=== PATIENT | male | born 1990 | race Caucasian/White ===

== ENCOUNTER 2020-08-12 16:48 | Emergency (ER) | payer OTHER ==
[2020-08-12 16:52] VITALS: BP 140/88; PULSE 110; RESP 20; TEMP 97.9
[2020-08-12] MEDS ORDERED: CLINDAMYCIN 150 MG CAP PO STA (17:00)
[2020-08-12] MEDS ORDERED: ACET/COD 300 MG/30 MG STARTER PACK 6 TAB BTL PO STA (17:01)
--- NOTE | 2020-08-12 17:02 | ED ---
ENT HPI - General Chief complaint: Dental/Oral Stated complaint: Tooth infection Time Seen by Provider: 08/12/20 16:53 Source: patient Mode of arrival: ambulatory Limitations: no limitations - History of Present Illness Initial comments: 29-year-old male history of dental caries presenting for right posterior tooth pain. Patient states the past week he has had dental pain. He states today he woke up with some mild right-sided facial swelling he does a swelling below the tongue swelling of the neck difficulty swallowing breathing or tolerating oral secretions he denies fevers chills general malaise. Patient states he felt immediate antibiotic presents to the ER as his primary care provider and digits are closed he denies additional complaints or concerns and upon arrival he appears well nontoxic noted acute distress. - Related Data Previous Rx's Medication Instructions Recorded Cyclobenzaprine [Flexeril] 10 mg PO TID #20 tab 12/04/15 Ibuprofen [Motrin] 800 mg PO Q6HR PRN #30 tab 12/04/15 Clindamycin [Cleocin] 450 mg PO Q8H 7 Days #63 capsule 08/12/20 Allergies Allergy/AdvReac Type Severity Reaction Status Date / Time Penicillins Allergy Unknown Verified 08/12/20 16:52 Childhood Review of Systems ROS Statement: Those systems with pertinent positive or pertinent negative responses have been documented in the HPI. ROS Other: All systems not noted in ROS Statement are negative. Past Medical History Past Medical History: No Reported History History of Any Multi-Drug Resistant Organisms: None Reported Past Surgical History: No Surgical Hx Reported Past Psychological History: No Psychological Hx Reported Past Alcohol Use History: Rare Past Drug Use History: None Reported General Exam - General Exam Comments Initial Comments: General: The patient is awake and alert, in no distress, and does not appear acutely ill. Eye: Pupils are equal, round and reactive to light, extra-ocular movements are intact. No nystagmus. There is normal conjunctiva bilaterally. No signs of icterus. Ears, nose, mouth and throat: There are moist mucous membranes and no oral lesions. patient percussion of tooth [id number]. No obvious gingival abscess. Cannot rule out periapical. Patient has numerous fillings. No swelling below tongue full angle of the mandible of the neck he has no tripoding drooling stridor he is tolerating oral secretions without difficulty Neck: The neck is supple, there is no tenderness or JVD. Musculoskeletal: Normal ROM, no tenderness. Strength 5/5. Sensation intact. Pulses equal bilaterally 2+. Neurological: A&O x 3. CN II-XII intact grossly, There are no obvious motor or sensory deficits. Coordination appears grossly intact. Speech is normal. Skin: Skin is warm and dry and no rashes or lesions are noted. Psychiatric: Cooperative, appropriate mood & affect, normal judgment. Limitations: no limitations Course Vital Signs 08/12/20 16:50 Temperature 97.9 F Pulse Rate 110 H Respiratory 20 Rate Blood Pressure 140/88 O2 Sat by Pulse 99 Oximetry Medical Decision Making - Medical Decision Making Dental pain to percussion, very mild swelling right side of face. no drainage abscess identified. pt will be placed on clindamycin given his PCN allergy. pt initiated in the ER. Pt given tylenol #3 for pain control. patient is aware of the importance of follow-up patient with dentist for possible extraction or further intervention. Return parameters were discussed the patient was discharged appearing well Disposition Clinical Impression: Pain, dental, Dental infection Disposition: HOME SELF-CARE Condition: Good Instructions (If sedation given, give patient instructions): Dental Abscess (ED) Additional Instructions: Please use medication as discussed. Please follow-up with family doctor in the next 2 days, recommend DENTIST follow-up TOMORROW or [facility] this upcoming week. Please return to emergency room if the symptoms increase or worsen or for any other concerns--swelling below the tongue increasing swelling of the face fevers chills, swelling of neck, difficulty swallowing. Prescriptions: Clindamycin [Cleocin] 450 mg PO Q8H 7 Days #63 capsule Is patient prescribed a controlled substance at d/c from ED?: No Referrals: Amrita Mejia MD [Primary Care Provider] - 1-2 days Time of Disposition: 17:02
== END 2020-08-12 17:27 | disposition home or self-care (01) ==
LOC: EC 16:48
DX: K04.7 Periapical abscess without sinus (principal); Z88.0 Allergy status to penicillin
CPT/HCPCS: 99282

== ENCOUNTER 2021-03-04 07:10 | Emergency (ER) | payer OTHER ==
[2021-03-04 07:17] VITALS: BP 134/93; PULSE 77; TEMP 98
[2021-03-04] MEDS ORDERED: KETOROLAC 15 MG/ML 1 ML VIAL IM STA (07:44)
--- NOTE | 2021-03-04 07:47 | ED ---
General Adult HPI - General Chief complaint: Back Pain/Injury Stated complaint: Back Injury Time Seen by Provider: 03/04/21 07:21 Source: patient Mode of arrival: ambulatory Limitations: no limitations - History of Present Illness Initial comments: Dictation was produced using [employer] dictation software. please excuse any grammatical, word or spelling errors. Chief Complaint: 30-year-old male with past medical history of scoliosis presents with back pain after fall History of Present Illness: 30-year-old male he was getting ready go to work. 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 Prior to arriving at work he slipped and fell on the grass landing on his left side. Patient states that he had immediate pain to the left soft tissues of the left lower back. Patient's history is when he reports as severe scoliosis. Patient was ambulatory after the fall. Denies any radiation of symptoms. States that the pain is moderate. He did arrive at work however because of his symptoms he decided to leave work, to be evaluated. Patient denies any medical history except for scoliosis. Denies any numbness and paresthesias to the saddle area. No difficulty urinating. States that position of comfort is standing in position of discomfort is lying left lateral decubitus position. The ROS documented in this emergency department record has been reviewed and confirmed by me. Those systems with pertinent positive or negative responses have been documented in the HPI. All other systems are other negative and/or noncontributory. PHYSICAL EXAM: General Impression: Alert and oriented x3, not in acute distress HEENT: Normocephalic atraumatic, extra-ocular movements intact, pupils equal and reactive to light bilaterally, mucous membranes moist. Cardiovascular: Heart regular rate and rhythm Chest: Able to complete full sentences, no retractions, no tachypnea Abdomen: abdomen soft, non-tender, non-distended, no organomegaly Musculoskeletal: Pulses present and equal in all extremities, no peripheral edema Back: Tenderness to palpation over the soft tissues of the left lateral lumbar level Motor: no focal deficits noted Neurological: CN II-XII grossly intact, no focal motor or sensory deficits noted Skin: Intact with no visualized rashes Psych: Normal affect and mood ED course: 30-year-old male presents with clinical presentation consistent with lower back strain versus lower back contusion. Vital signs upon arrival are within acceptable limits. Lumbar x-rays unremarkable for any acute processes. There does appear to be degenerative changes in the upper and lower lumbar spine. Patient will be discharged. Advised follow-up with primary care doctor. - Related Data Previous Rx's Medication Instructions Recorded Cyclobenzaprine [Flexeril] 10 mg PO TID #20 tab 12/04/15 Ibuprofen [Motrin] 800 mg PO Q6HR PRN #30 tab 12/04/15 Clindamycin [Cleocin] 450 mg PO Q8H 7 Days #63 capsule 08/12/20 Allergies Allergy/AdvReac Type Severity Reaction Status Date / Time Penicillins Allergy Unknown Verified 03/04/21 07:14 Childhood Review of Systems ROS Statement: Those systems with pertinent positive or pertinent negative responses have been documented in the HPI. ROS Other: All systems not noted in ROS Statement are negative. Past Medical History Past Medical History: No Reported History History of Any Multi-Drug Resistant Organisms: None Reported Past Surgical History: No Surgical Hx Reported Past Psychological History: No Psychological Hx Reported Smoking Status: Current every day smoker Past Alcohol Use History: None Reported Past Drug Use History: None Reported General Exam Limitations: no limitations Course Vital Signs 03/04/21 03/04/21 07:14 08:17 Temperature 98.0 F Pulse Rate 77 Respiratory 16 18 Rate Blood Pressure 134/93 O2 Sat by Pulse 99 Oximetry Disposition Clinical Impression: Back strain Disposition: HOME SELF-CARE Condition: Good Instructions (If sedation given, give patient instructions): Acute Low Back Pain (ED) Is patient prescribed a controlled substance at d/c from ED?: No Referrals: Amrita Mejia MD [Primary Care Provider] - 1-2 days
[2021-03-04 08:24] VITALS: RESP 18
[2021-03-04] MEDS ORDERED: IBUPROFEN 600 MG TAB PO STA (08:24)
--- NOTE | 2021-03-04 08:24 | XR ---
EXAMINATION TYPE: XR lumbar spine 2 or 3V DATE OF EXAM: 03/04/2021 Comparison: None Clinical History: 30-year-old male fall Findings: 5 lumbar type vertebral bodies. Facet arthropathy lower lumbar spine. Mild degenerative disc space na rrowing upper lumbar spine. Vertebral body heights are preserved and alignment is maintained. Straigh tening of the normal cervical lordosis. Impression: Some facet degenerative change in the lower lumbar spine. Mild degenerative disc disease upper lumbar spine. No vertebral compression collapse or malalignment.
[2021-03-04] MEDS ORDERED: ACET/COD 300 MG/30 MG STARTER PACK 6 TAB BTL PO STA (08:49)
== END 2021-03-04 08:56 | disposition home or self-care (01) ==
LOC: EC 07:10
DX: S39.012A Strain of muscle, fascia and tendon of lower back, initial encounter (principal); F17.200 Nicotine dependence, unspecified, uncomplicated; Z88.0 Allergy status to penicillin; W01.0XXA Fall on same level from slipping, tripping and stumbling without subsequent striking against object, initial encounter; Y92.009 Unspecified place in unspecified non-institutional (private) residence as the place of occurrence of the external cause
CPT/HCPCS: 72100; 99283

== ENCOUNTER → 2021-03-06 | Outpatient (CLI) | payer OTHER ==
--- NOTE | 2021-03-06 22:06 | XR ---
EXAMINATION TYPE: XR Hip Bilateral Complete DATE OF EXAM: 03/06/2021 COMPARISON: NONE HISTORY: Pain TECHNIQUE: 4 views FINDINGS: There is no sign of fracture nor dislocation. Hip joint spaces are normal. Sacroiliac joint s appear normal. There is no hip dysplasia. IMPRESSION: Normal bilateral hip exam.
--- NOTE | 2021-03-06 22:07 | XR ---
EXAMINATION TYPE: XR sacroiliac joint comp BILAT DATE OF EXAM: 03/06/2021 COMPARISON: NONE HISTORY: Fall. Pain. TECHNIQUE: 3 views FINDINGS: There is no evidence of fracture nor dislocation. Sacroiliac joint spaces are normal. There are no erosions. IMPRESSION: Normal bilateral sacroiliac joint exam.
--- NOTE | 2021-03-06 22:08 | XR ---
EXAMINATION TYPE: XR thoracic spine 2V DATE OF EXAM: 03/06/2021 COMPARISON: None HISTORY: Pain TECHNIQUE: 3 views FINDINGS: Thoracic vertebra have normal spacing and alignment. Posterior elements are intact. There i s no evidence of paraspinal mass. There is no compression fracture. IMPRESSION: Negative thoracic spine exam. No fracture seen.
== END | disposition home or self-care (01) ==
LOC: RADXRMAIN 18:54
PROVIDERS: ATTEND Family Medicine
DX: M54.5 Low back pain (principal); M25.551 Pain in right hip; M25.552 Pain in left hip
CPT/HCPCS: 72070; 72202; 73521

== ENCOUNTER 2021-04-30 03:54 | Emergency (ER) | payer OTHER ==
[2021-04-30 04:02] VITALS: TEMP 98.8
[2021-04-30] MEDS ORDERED: IBUPROFEN 800 MG TAB PO STA (04:04)
[2021-04-30] MEDS ORDERED: diphenhydrAMINE 50 MG CAP PO STA (04:04)
[2021-04-30] MEDS ORDERED: AZITHROMYCIN 500 MG TAB PO STA (04:04)
[2021-04-30] MEDS ORDERED: ACETAMINOPHEN TAB 500 MG TAB PO STA (04:04)
[2021-04-30] MEDS ORDERED: FLUTICASONE 50MCG/SPRAY NASAL 16GM EA NOSTRIL STA (04:04)
--- NOTE | 2021-04-30 04:10 | ED ---
ENT HPI - General Chief complaint: ENT Stated complaint: not feeling well Time Seen by Provider: 04/30/21 03:55 Source: EMS, RN notes reviewed, old records reviewed Mode of arrival: EMS Limitations: no limitations - History of Present Illness Initial comments: This is a 30-year-old male who states having difficulty breathing secondary to unable to take a deep breath and may have blood pressure severe sinus infection currently. Patient denying fevers or headache. No other known complaints no sore throat no chest pain or shortness of breath. Patient has history of sinus infections and this feels the same MD complaint: sore throat -: days(s) Location: nose Severity: moderate Severity scale (1-10): 4 Consistency: constant Improves with: none, pressure, cold therapy Worsens with: none Context- Ear: recent illness Associated Symptoms: sore throat, tinnitus, rhinorrhea - Related Data Home Medications Medication Instructions Recorded Confirmed Ibuprofen [Motrin Ib] 800 mg PO Q8H PRN 03/04/21 03/04/21 Previous Rx's Medication Instructions Recorded Azithromycin [Zithromax Z-pack (6 0 mg PO DIRECTED #1 packet 04/30/21 tabs)] Allergies Allergy/AdvReac Type Severity Reaction Status Date / Time Penicillins Allergy Unknown Verified 03/04/21 08:45 Childhood Review of Systems ROS Statement: Those systems with pertinent positive or pertinent negative responses have been documented in the HPI. ROS Other: All systems not noted in ROS Statement are negative. Past Medical History Past Medical History: No Reported History History of Any Multi-Drug Resistant Organisms: None Reported Past Surgical History: No Surgical Hx Reported Past Psychological History: No Psychological Hx Reported Smoking Status: Current every day smoker Past Alcohol Use History: Occasional Past Drug Use History: Cocaine, Marijuana General Exam General appearance: alert, in no apparent distress Head exam: Present: atraumatic, normocephalic, normal inspection Eye exam: Present: normal appearance, PERRL, EOMI. Absent: scleral icterus, conjunctival injection, periorbital swelling ENT exam: Present: normal exam, mucous membranes moist Neck exam: Present: normal inspection. Absent: tenderness, meningismus, lymphadenopathy Respiratory exam: Present: normal lung sounds bilaterally. Absent: respiratory distress, wheezes, rales, rhonchi, stridor Cardiovascular Exam: Present: regular rate, normal rhythm, normal heart sounds. Absent: systolic murmur, diastolic murmur, rubs, gallop, clicks GI/Abdominal exam: Present: soft, normal bowel sounds. Absent: distended, tenderness, guarding, rebound, rigid Extremities exam: Present: normal inspection, full ROM, normal capillary refill. Absent: tenderness, pedal edema, joint swelling, calf tenderness Back exam: Present: normal inspection Neurological exam: Present: alert, oriented X3, CN II-XII intact Psychiatric exam: Present: normal affect, normal mood Skin exam: Present: warm, dry, intact, normal color. Absent: rash Course Vital Signs 04/30/21 04/30/21 03:55 05:33 Temperature 98.8 F Pulse Rate 89 88 Respiratory 20 24 Rate Blood Pressure 155/97 145/84 O2 Sat by Pulse 94 L 96 Oximetry - Reevaluation(s) Reevaluation #1: Medical record is reviewed Patient symptoms are significantly improved Patient family informed results questions answered Medical Decision Making - Medical Decision Making 30 male to The ER for evaluation of upper respiratory infection sinusitis. Sinus headache. Symptoms improved here in the ER and can be discharged home Disposition Clinical Impression: Acute sinusitis Disposition: HOME SELF-CARE Condition: Good Instructions (If sedation given, give patient instructions): Sinusitis (ED), Rhinosinusitis (ED) Prescriptions: Azithromycin [Zithromax Z-pack (6 tabs)] 0 mg PO DIRECTED #1 packet Is patient prescribed a controlled substance at d/c from ED?: No Referrals: Amrita Mejia MD [Primary Care Provider] - 1-2 days
[2021-04-30] MEDS ORDERED: PSEUDOEPHEDRINE 30 MG TAB PO STA (04:17)
[2021-04-30 05:35] VITALS: BP 145/84; PULSE 88; RESP 24
[2021-04-30] MEDS ORDERED: PSEUDOEPHEDRINE 30 MG TAB PO SCH (06:00)
== END 2021-04-30 05:37 | disposition home or self-care (01) ==
LOC: EC 03:54
DX: J01.90 Acute sinusitis, unspecified (principal); F17.200 Nicotine dependence, unspecified, uncomplicated; Z88.0 Allergy status to penicillin
CPT/HCPCS: 99284

== ENCOUNTER 2024-10-19 08:04 | Inpatient (IN) | payer MEDICAID, OTHER ==
--- NOTE | 2024-10-19 08:40 | ED ---
General Adult HPI - General Chief complaint: Psychiatric Symptoms Stated complaint: Petition Time Seen by Provider: 10/19/24 08:18 Source: patient, police Mode of arrival: ambulatory Limitations: no limitations - History of Present Illness Initial comments: Dictation was produced using [employer] dictation software. please excuse any grammatical, word or spelling errors. Chief Complaint: 33-year-old male presents to the emergency department for psychiatric evaluation History of Present Illness: Patient 33-year-old male presents to the emergency department for psychiatric evaluation. Patient was brought in by police after stepdad had filed a report. Patient has been paranoid. Patient denies any symptoms. States that people are out to get him. Apparently he has been trying to obtain dangerous weapons. The ROS documented in this emergency department record has been reviewed and confirmed by me. Those systems with pertinent positive or negative responses have been documented in the HPI. All other systems are other negative and/or noncontributory. - Related Data Home Medications Medication Instructions Recorded Confirmed Ibuprofen [Motrin Ib] 800 mg PO Q8H PRN 03/04/21 10/19/24 ALPRAZolam [Xanax] 1 mg PO BID PRN 10/19/24 10/19/24 Atorvastatin [Lipitor] 40 mg PO DAILY 10/19/24 10/19/24 Buprenorphine HCl/Naloxone HCl 1 film SL TID 10/19/24 10/19/24 [Suboxone 8 mg-2 mg Sl Film] Losartan Potassium 100 mg PO DAILY 10/19/24 10/19/24 Omeprazole 40 mg PO DAILY 10/19/24 10/19/24 amLODIPine [Norvasc] 5 mg PO DAILY 10/19/24 10/19/24 hydrOXYzine HCL [Atarax] 50 mg PO BID PRN 10/19/24 10/19/24 Allergies Allergy/AdvReac Type Severity Reaction Status Date / Time Penicillins Allergy Unknown Verified 10/19/24 10:53 Childhood Review of Systems ROS Statement: Those systems with pertinent positive or pertinent negative responses have been documented in the HPI. ROS Other: All systems not noted in ROS Statement are negative. Past Medical History Past Medical History: No Reported History History of Any Multi-Drug Resistant Organisms: None Reported Past Surgical History: No Surgical Hx Reported Past Psychological History: No Psychological Hx Reported Smoking Status: Current every day smoker Past Alcohol Use History: Occasional Past Drug Use History: Cocaine, Marijuana, Methamphetamine General Exam - General Exam Comments Initial Comments: PHYSICAL EXAM: General Impression: Alert and oriented x3, not in acute distress HEENT: Normocephalic atraumatic, extra-ocular movements intact, pupils equal and reactive to light bilaterally, mucous membranes moist. Cardiovascular: Heart regular rate and rhythm Chest: Able to complete full sentences, no retractions, no tachypnea Abdomen: abdomen soft, non-tender, non-distended, no organomegaly Musculoskeletal: Pulses present and equal in all extremities, no peripheral edema Motor: no focal deficits noted Neurological: CN II-XII grossly intact, no focal motor or sensory deficits noted Skin: Intact with no visualized rashes Psych: Aggressive, tangential speech Limitations: no limitations Course Vital Signs 10/19/24 10/19/24 08:10 08:32 Temperature 98.4 F 97.8 F Pulse Rate 95 92 Respiratory 19 16 Rate Blood Pressure 118/75 122/86 O2 Sat by Pulse 97 99 Oximetry Medical Decision Making - Medical Decision Making Was pt. sent in by a medical professional or institution (, PA, RN TELEPHONIC, urgent care, hospital, or jail...) When possible be specific @ -No Did you speak to anyone other than the patient for history (EMS, parent, family, police, friend...)? What history was obtained from this source @ -No Did you review nursing and triage notes (agree or disagree)? Why? @ -I reviewed and agree with nursing and triage notes Were old charts reviewed (outside hosp., previous admission, EMS record, old EKG, old radiological studies, urgent care reports/EKG's, jail records)? Report findings @ -No old charts were reviewed Differential Diagnosis (chest pain, altered mental status, abdominal pain women, abdominal pain men, vaginal bleeding, musculoskeletal, weakness, fever, dyspnea, syncope, headache, dizziness, GI bleed, back pain, seizure, CVA, palpatations, mental health)? @ -Differential Mental Health: Depression, anxiety, bipolar, psychosis, schizophrenia, borderline personality, situational depression, adjustment disorder, behavioral disorder, brain tumor, malingering, substance abuse, encephalopathy, medication reaction, dementia, hypothyroidism, degenerative neurologic disorder, lupus.... This is not meant to be all-inclusive list EKG interpreted by me (3pts min.). @ -None done X-rays interpreted by me (1pt min.). @ -None done CT interpreted by me (1pt min.). @ -None done U/S interpreted by me (1pt. min.). @ -None done What testing was considered but not performed or refused? (CT, X-rays, U/S, labs)? Why? @ -None What meds were considered but not given or refused? Why? @ -None Was smoking cessation discussed for >3mins.? @ -No Were there social determinants of health that impacted care today? How? (Homelessness, low income, unemployed, alcoholism, drug addiction, transportation, low edu. Level, literacy, decrease access to med. care, correction, rehab)? @ -No Was there de-escalation of care discussed even if they declined (Discuss DNR or withdrawal of care, Hospice)? DNR status @ -No What co-morbidities impacted this encounter? (DM, HTN, Smoking, COPD, CAD, Cancer, CVA, ARF, Chemo, Hep., AIDS, mental health diagnosis, sleep apnea, morbid obesity)? @ -Illicit drug abuse Was patient admitted / discharged? Hospital course, mention meds given and route, prescriptions, significant lab abnormalities, going to OR and other pertinent info. @ -33-year-old male presents to the emergency department for acute psychosis. Vital signs stable. Patient medically cleared for EPS evaluation. EPS evaluated patient patient petition. Clinical certification completed will be admitted to inpatient psych Did you discuss the management of the patient with other professionals (professionals i.e. , PA, RN TELEPHONIC, lab, RT, psych nurse, clinical social worker, sizing sprayer, teacher, chief learning officer, case folder)? Give summary @ -See above Was critical care preformed (if so, how long)? @ -No Undiagnosed new problem with uncertain prognosis? @ -No Drug Therapy requiring intensive monitoring for toxicity (Heparin, Nitro, Insulin, Cardizem)? @ -No Were any procedures done? @ -No Diagnosis/symptom? Acute, or Chronic, or Acute on Chronic? Uncomplicated (without systemic symptoms) or Complicated (systemic symptoms)? @ -Acute psychosis Side effects of treatment? @ -No Exacerbation, Progression, or Severe Exacerbation? @ -No Poses a threat to life or bodily function? How? (Chest pain, [place], [place], pneumonia, PE, COPD, DKA, ARF, appy, cholecystitis, CVA, Diverticulitis, Homicidal, Suicidal, threat to staff... and all critical care pts) @ -yes - Lab Data Lab Results 10/19/24 10/19/24 Range/Units 09:02 11:00 Urine Opiates Screen Not Detected (NotDetected) Ur Oxycodone Screen Not Detected (NotDetected) Urine Methadone Screen Not Detected (NotDetected) Ur Barbiturates Screen Not Detected (NotDetected) U Tricyclic Antidepress Not Detected (NotDetected) Ur Phencyclidine Scrn Not Detected (NotDetected) Ur Amphetamines Screen Detected H (NotDetected) U Methamphetamines Scrn Detected H (NotDetected) U Benzodiazepines Scrn Detected H (NotDetected) Urine Cocaine Screen Not Detected (NotDetected) U Marijuana (THC) Screen Detected H (NotDetected) SARS-CoV-2 (PCR) Not Detected (Not Detectd) Disposition Clinical Impression: Psychosis Disposition: TRANSFER TO PSYCH HOSP/UNIT Condition: Fair Referrals: Carlos Koch MD [Primary Care Provider] - 1-2 days Time of Disposition: 12:48
[2024-10-19 11:27] LABS: Amphetamine Screen,Urine Detected (NotDetected); Barbiturate Screen,Urine Not Detected (NotDetected); Benzodiazepines Screen,Urine Detected (NotDetected); Cocaine Screen,Urine Not Detected (NotDetected); Methadone Screen, Urine Not Detected (NotDetected); Opiate Screen,Urine Not Detected (NotDetected); Oxycodone Screen, Urine Not Detected (NotDetected); Phencyclidine Screen,Urine Not Detected (NotDetected); Tricyclic Antidepressant,Urine Not Detected (NotDetected); Urn Cannabinoid Scrn Detected (NotDetected)
[2024-10-19] MEDS ORDERED: ACETAMINOPHEN TAB 325 MG TAB PO PRN (13:56)
[2024-10-19] MEDS ORDERED: MAGNESIUM HYDROXIDE 2,400 MG/30 ML CUP PO PRN (13:56)
[2024-10-19] MEDS ORDERED: MAG HYDROX/AL HYDROX/SIMETH 355 ML BOTTLE PO PRN (13:56)
[2024-10-19] MEDS ORDERED: HALOPERIDOL LACTATE 5 MG/ML 1 ML VIAL IM PRN (13:58)
[2024-10-19] MEDS ORDERED: LORazepam 2 MG/ML INJ IM PRN (13:58)
[2024-10-19] MEDS ORDERED: haloperidoL 5 MG TAB PO PRN (13:58)
[2024-10-19] MEDS ORDERED: BUPRENORPHINE-NALOX 8-2 MG TAB 1 EACH TAB.SUBL SL SCH (16:15)
[2024-10-19] MEDS: BUPRENORPHINE-NALOX 8-2 MG TAB 1 EACH TAB.SUBL SL SCH (16:18)
[2024-10-19] MEDS: NON FORMULARY DRUG (Buprenorphine Hcl/Naloxone Hcl [Suboxone 8 Mg-2 Mg Sl Film] 1 EACH Fil SUBLINGUAL SCH (16:21)
[2024-10-19] MEDS: LORazepam 1 MG TAB PO PRN (18:40)
[2024-10-19] MEDS: NICOTINE 14MG/24HR PATCH TRANSDERM SCH (21:21)
[2024-10-19 21:53] VITALS: RESP 16
[2024-10-20] MEDS: PANTOPRAZOLE 40 MG TABLET PO SCH (08:37)
[2024-10-20] MEDS: amLODIPine 5 MG TAB PO SCH (08:37)
[2024-10-20] MEDS: ATORVASTATIN 40 MG TAB PO SCH (08:37)
[2024-10-20] MEDS: LOSARTAN 50 MG TAB PO SCH (08:37)
[2024-10-20] MEDS ORDERED: NICOTINE 14MG/24HR PATCH TRANSDERM SCH (09:00)
[2024-10-20 11:51] LABS: Basophils # (A) 0.07 10*3/uL (0.00-0.10); Basophils % (A) 0.6 %; Eosinophils # (A) 0.51 10*3/uL (0.04-0.35); Eosinophils % (A) 4.1 %; HCT 43.3 % (39.6-50.0); HGB 14.3 g/dL (13.0-17.0); Lymphocytes # (A) 2.27 10*3/uL (0.90-5.00); Lymphocytes % (A) 18.2 %; MCH 31.2 pg (27.0-32.0); MCV 94.3 fL (80.0-97.0); Mean Platelet Volume 9.3 fL (9.5-12.2); Monocytes # (A) 0.78 10*3/uL (0.20-1.00); Monocytes % (A) 6.3 %; Neutrophils # (A) 8.79 10*3/uL (1.80-7.70); Neutrophils % (A) 70.4 %; Platelet Count 287 10*3/uL (140-440); RBC 4.59 10*6/uL (4.40-5.60); RDW 12.7 % (11.5-14.5); WBC 12.47 10*3/uL (4.50-10.00)
[2024-10-20 12:22] LABS: ALT 13 U/L (4-49); AST 21 U/L (17-59); African American GFR (CKD) >90 (>60 ml/min/1.73 sqM); Albumin 3.3 g/dL (3.5-5.0); Alkaline Phosphatase 41 U/L (38-126); Anion Gap 0 mmol/L; Blood Urea Nitrogen 14 mg/dL (9-20); Calcium 9.5 mg/dL (8.4-10.2); Carbon Dioxide 34 mmol/L (22-30); Chloride 102 mmol/L (98-107); Glucose 91 mg/dL (74-99); Non-African American GFR(CKD) >90 (>60 ml/min/1.73 sqM); Potassium 4.7 mmol/L (3.5-5.1); Sodium 136 mmol/L (137-145); Total Bilirubin 0.4 mg/dL (0.2-1.3); Total Protein 5.3 g/dL (6.3-8.2)
[2024-10-20] MEDS: ESCITALOPRAM 10 MG TAB PO SCH (13:55)
[2024-10-20] MEDS: hydrOXYzine HCL 25 MG TAB PO SCH (13:55)
--- NOTE | 2024-10-20 14:02 | P.HP ---
Psychiatric H&P - . H&P Date: 10/20/24 History & Physical: Allergies Allergy/AdvReac Type Severity Reaction Status Date / Time Penicillins Allergy Unknown Verified 10/19/24 10:53 Childhood Vital Signs Temp 97.0 F L 10/20/24 08:37 Pulse 81 10/20/24 08:37 Resp 16 10/20/24 08:37 BP 111/71 10/20/24 08:37 Pulse Ox 98 10/20/24 08:37 FiO2 Intake & Output 10/19/24 10/20/24 10/20/24 18:59 06:59 18:59 Weight 80.739 kg Laboratory Last Values WBC 12.47 10*3/uL (4.50-10.00) H 10/20/24 11:20 RBC 4.59 10*6/uL (4.40-5.60) 10/20/24 11:20 Hgb 14.3 g/dL (13.0-17.0) 10/20/24 11:20 Hct 43.3 % (39.6-50.0) 10/20/24 11:20 MCV 94.3 fL (80.0-97.0) 10/20/24 11:20 MCH 31.2 pg (27.0-32.0) 10/20/24 11:20 MCHC 33.0 g/dL (32.0-37.0) 10/20/24 11:20 Plt Count 287 10*3/uL (140-440) 10/20/24 11:20 MPV 9.3 fL (9.5-12.2) L 10/20/24 11:20 Immature Gran % (Auto) 0.4 % 10/20/24 11:20 Neutrophils % 70.4 % 10/20/24 11:20 Lymphocytes % 18.2 % 10/20/24 11:20 Monocytes % 6.3 % 10/20/24 11:20 Eosinophils % 4.1 % 10/20/24 11:20 Basophils % 0.6 % 10/20/24 11:20 Immature Gran # 0.05 10*3/uL (0.00-0.04) H 10/20/24 11:20 Neutrophils # 8.79 10*3/uL (1.80-7.70) H 10/20/24 11:20 Lymphocytes # 2.27 10*3/uL (0.90-5.00) 10/20/24 11:20 Monocytes # 0.78 10*3/uL (0.20-1.00) 10/20/24 11:20 Eosinophils # 0.51 10*3/uL (0.04-0.35) H 10/20/24 11:20 Basophils # 0.07 10*3/uL (0.00-0.10) 10/20/24 11:20 Sodium 136 mmol/L (137-145) L 10/20/24 11:20 Potassium 4.7 mmol/L (3.5-5.1) 10/20/24 11:20 Chloride 102 mmol/L (98-107) 10/20/24 11:20 Carbon Dioxide 34 mmol/L (22-30) H 10/20/24 11:20 Anion Gap 0 mmol/L 10/20/24 11:20 BUN 14 mg/dL (9-20) 10/20/24 11:20 Creatinine 0.80 mg/dL (0.66-1.25) 10/20/24 11:20 Est GFR (CKD-EPI)AfAm >90 (>60 ml/min/1.73 sqM) 10/20/24 11:20 Est GFR (CKD-EPI)NonAf >90 (>60 ml/min/1.73 sqM) 10/20/24 11:20 Glucose 91 mg/dL (74-99) 10/20/24 11:20 Calcium 9.5 mg/dL (8.4-10.2) 10/20/24 11:20 Total Bilirubin 0.4 mg/dL (0.2-1.3) 10/20/24 11:20 AST 21 U/L (17-59) 10/20/24 11:20 ALT 13 U/L (4-49) 10/20/24 11:20 Alkaline Phosphatase 41 U/L (38-126) 10/20/24 11:20 Total Protein 5.3 g/dL (6.3-8.2) L 10/20/24 11:20 Albumin 3.3 g/dL (3.5-5.0) L 10/20/24 11:20 TSH 0.410 mIU/L (0.465-4.680) L 10/20/24 11:20 Urine Opiates Screen Not Detected (NotDetected) 10/19/24 11:00 Ur Oxycodone Screen Not Detected (NotDetected) 10/19/24 11:00 Urine Methadone Screen Not Detected (NotDetected) 10/19/24 11:00 Ur Barbiturates Screen Not Detected (NotDetected) 10/19/24 11:00 U Tricyclic Antidepress Not Detected (NotDetected) 10/19/24 11:00 Ur Phencyclidine Scrn Not Detected (NotDetected) 10/19/24 11:00 Ur Amphetamines Screen Detected (NotDetected) H 10/19/24 11:00 U Methamphetamines Scrn Detected (NotDetected) H 10/19/24 11:00 U Benzodiazepines Scrn Detected (NotDetected) H 10/19/24 11:00 Urine Cocaine Screen Not Detected (NotDetected) 10/19/24 11:00 U Marijuana (THC) Screen Detected (NotDetected) H 10/19/24 11:00 SARS-CoV-2 (PCR) Not Detected (Not Detectd) 10/19/24 09:02 10/20/24 13:54 IDENTIFYING DATA: Patient is a 33-year-old male, employed and living with family CHIEF COMPLAINT: Psychosis HPI: Patient presented to the hospital with paranoia, bizarre behaviors. Per EPS, "A/O x4 brought in via police on PET due to bizzare behavior and paranoia. Pet states " Zulma has been extreemly paranoid that subjects were after him with guns, he has made [facility] police reports about people breaking into his house, he has grabbed knives and asked for step fathers hand gun. While at [facility] he stated he wanted to kill himself by smashing his head into the ground. Step father reports concerns that cl would try to get their gun." Cl presents with semi pressured speech that is difficult to understand. Cl reports beliefs that they are being followed and not safe. Cl reports " this all started about two weeks ago after I called CPS out of concern for my 4yr old daughter and who she is around. Not long after I had started seeing a black and a white dodge cong with very tinted windows, probably illegal, driving by my house looking for me or stalking me. I am not sure." Cl reports hx of anxiety since antonio hutton. Cl goes on to say " I don't know who they are but I think its probably related to that CPS call. You just never know with some people." Cl reports " I just want to keep my family safe. They think they are not going to have anything happen to them because of the neighborhood they live in. I tell them I see people driving by, but they deny it." Cl presents paranoid, anxious, tangential, and reports not feeling safe. 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 Cl was reported to have methamphetamines on his person. Judgement/insight/impulse control: poor ADLS: fair Sleep/Mecca: good. Medical issues: High Bp, High Chol, on MAT program through [facility]. Medications: Lexapro, Xanax,Suboxone,Lipitor,Losartin,Amalodipine. Hx of MH tx: none reported. Hx of LUIS A: Admits to using meth "about week and half ago, I don't like it. I also used some Thursday." Hx of opiate use: pills. On Suboxone 8 mg tid. Hx of in pat rehab: none reported. Fam hx: Maternal: anxiety. Paternal: unknown. Cl reports not knowing bio father. Hx of trauma: none reported. Hx of self harm: none reported. Hx of legal: probation for dom wesley. Hx of [facility] for felonius assault. Recently in shelter released 03/2024. Denies SI/HI". Patient seen and evaluated on the unit and was agreeable with speaking to technical proposal writer in office. He states for the past 1-2 weeks there has been some body in his neighborhood intentionally messing with him. He states his ex girlfriend has a new partner to which he recently filed a complaint with CPS and he has a sense that this could be related. He states that someone has been banging on the windows, shining light from the roof and that his mom and stepdad are not aware of these incidents due to their hearing impairments. This is confounded by the fact that roughly 1.5 weeks ago he used meth, stated that he took 2-3 hits, denying any use in the past 2 days. This was strongly discouraged as patient's symptoms does appear to be directly related to his meth use. He states that his stepdad does have a gun however he does not have access to this and thus to defend himself he had to grab kitchen knives. He denies any past psych history. Patient denies any suicidal or homicidal ideations intent or plan. At this time patient denies any auditory or visual hallucinations. Patient denies any flight of ideas racing thoughts and increased in goal directed behavior. Patient admits to using meth once, taking 2-3 hits per patient, smoking 1/2 pack/day of cigarettes, he has been opiate free for 6 months. PAST PSYCHIATRIC HISTORY: Patient has a history of substance use disorder, anxiety. Patient is currently prescribed Lexapro, Vistaril 50 mg twice daily, Xanax 1 mg 2 times daily as needed prescribed by his PCP Dr. Koch. Patient denies any previous psychiatric hospitalizations. Patient denies any psychiatric outpatient follow-up. Patient denies any history of suicide attempts in the past. PMH: as per ER note ALLERGIES: as per EMR SUBSTANCE USE HISTORY: As per HPI FAMILY PSYCHIATRIC/SUBSTANCE USE HISTORY: Patient states his mom has anxiety SOCIAL HISTORY: Patient is single and has 1 daughter. 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 He lives with his mom and stepdad. MENTAL STATUS EXAM: General Appearance: Patient appears to be stated age is alert, directable, and attempts to cooperate. Patient appears to have fair hygiene and grooming. He has several tattoos Behavior: Patient is seated without any agitated behavior. Speech: Patient's speech is fluent and nonpressured. Mood/Affect: Patient reports their mood is "all right", affect is congruent and constricted. Suicidality/Homicidality: Patient denies having any homicidal ideation intent or plan. Denies any suicidal ideations intent or plan Perceptions: Patient denies any visual hallucinations and denies any auditory hallucinations Though content/process: There is no evidence of any delusional thought content and thought process is linear and goal-directed. Memory and concentration: AOX3, grossly intact for the purposes of this session. Can spell "WORLD" backwards Judgment and insight: Poor STRENGTHS/WEAKNESSES: strength is that patient is resilient and has family support. Weakness is that patient has poor judgment, uses substances and is impulsive INTELLECT: Average IMPRESSIONS: Substance-induced psychotic disorder Anxiety, unspecified Nicotine dependence Opioid use disorder, in remission PLAN: -Patient is admitted under voluntary status to MHU for stabilization of psychiatric symptoms and safety. Patient has signed adult voluntary form and and is placed in patient's chart. -Medications : Start Lexapro 10 mg daily for anxiety, Vistaril 50 mg twice daily for anxiety -Ativan and Haldol PRN for agitation/aggression -Patient was counselled on substance abuse and desired to cut back on use-Will offer patient subtance use rehab -Patient was informed of the risks, benefits and side effects of the medication and patient verbally consented to taking the medications. Patient signed med consent form and was placed in chart. -Internal Medicine consult to perform medical evaluation and physical. -NRT -nicotine patch -SW on board for discharge planning. Encourage patient to participate in groups to work on coping skills. Anticipate discharge back home with mom and stepdad tomorrow
[2024-10-20 21:28] VITALS: TEMP 97.9
--- NOTE | 2024-10-20 22:23 | CONS ---
CONSULTATION CHIEF COMPLAINT: Acute psychosis and paranoia. HISTORY OF PRESENT ILLNESS: This is a gentleman, apparently he was brought to the emergency room by his parents. He states that he told him that somebody is trying to hurt him and they did not believe him. REVIEW OF SYSTEMS: He denies any headaches, chest pain, shortness of breath, abdominal pain, vomiting, diarrhea, urinary complaints, etc. Past medical history, family history, personal and social histories reveal that he is allergic to penicillin. He has been on, 1. Suboxone 8/2 t.i.d. 2. Hydroxyzine 50 mg twice a day as needed. 3. Lexapro 20 mg daily. 4. Lipitor 40 mg once a day. 5. Vitamin D3. 6. Ibuprofen 800 q.i.d. p.r.n. 7. Amlodipine 5 mg once a day. 8. Losartan 100 mg once a day. 9. Xanax 1 mg t.i.d. p.r.n. 10.Omeprazole 40 mg once a day. The remainder of his history is unremarkable. He does smoke. PHYSICAL EXAMINATION: VITAL SIGNS: Normal. HEAD, EARS, EYES, NOSE, MOUTH AND THROAT: Normal. CHEST: Clear. CARDIAC: Normal. ABDOMEN: Soft, nontender. EXTREMITIES: Normal. IMPRESSION: 1. Paranoid delusions. 2. History of opioid addiction. 3. Depression. 4. Hypertension. RECOMMENDATIONS: None. Thank you respectfully, CHRISTIAN / EMMA: [phone] /
[2024-10-21] MEDS: IBUPROFEN 600 MG TAB PO PRN (08:19)
[2024-10-21 08:33] VITALS: BP 129/81; PULSE 79
--- NOTE | 2024-10-21 12:59 | P.DS ---
Providers Date of admission: 10/19/24 13:54 Expected date of discharge: 10/21/24 Attending physician: Latoya Lowry MD Consults: 10/19/24 13:56 Consult Physician Routine Consulting Provider: Carlos Koch Consult Reason/Comments: H&P Do you want consulting provider notified?: Yes Primary care physician: Carlos Koch - Discharge Diagnosis(es) (1) Substance-induced psychotic disorder Current Visit: Yes Status: Acute Priority: High (2) Anxiety disorder, unspecified Current Visit: Yes Status: Acute Priority: Medium (3) Nicotine dependence Current Visit: Yes Status: Acute Priority: Low (4) Opioid use disorder in remission Current Visit: Yes Status: Chronic Priority: Low Hospital Course: Admission HPI: Admission note was completed by conventional underwriter "Patient presented to the hospital with paranoia, bizarre behaviors. Per EPS, "A/O x4 brought in via police on PET due to bizzare behavior and paranoia. Pet states " Zulma has been extreemly paranoid that subjects were after him with guns, he has made [facility] police reports about people breaking into his house, he has grabbed knives and asked for step fathers hand gun. While at [facility] he stated he wanted to kill himself by smashing his head into the ground. Step father reports concerns that cl would try to get their gun." Cl presents with semi pressured speech that is difficult to understand. Cl reports beliefs that they are being followed and not safe. Cl reports " this all started about two weeks ago after I called CPS out of concern for my 4yr old daughter and who she is around. Not long after I had started seeing a black and a white dodge cong with very tinted windows, probably illegal, driving by my house looking for me or stalking me. I am not sure." Cl reports hx of anxiety since childhood. Cl goes on to say " I don't know who they are but I think its probably related to that CPS call. You just never know with some people." Cl reports " I just want to keep my family safe. They think they are not going to have anything happen to them because of the neighborhood they live in. I tell them I see people driving by, but they deny it." Cl presents paranoid, anxious, tangential, and reports not feeling safe. 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 Cl was reported to have methamphetamines on his person. Judgement/insight/impulse control: poor ADLS: fair Sleep/Mecca: good. Medical issues: High Bp, High Chol, on MAT program through [facility]. Medications: Lexapro, Xanax,Suboxone,Lipitor,Losartin,Amalodipine. Hx of MH tx: none repo rted. Hx of LUIS A: Admits to using meth "about week and half ago, I don't like it. I also used some Thursday." Hx of opiate use: pills. On Suboxone 8 mg tid. Hx of in pat rehab: none reported. Fam hx: Maternal: anxiety. Paternal: unknown. Cl reports not knowing bio father. Hx of trauma: none reported. Hx of self harm: none reported. Hx of legal: probation for dom wesley. Hx of [facility] for felonius assault. Recently in intermediate released 03/2024. Denies SI/HI". Patient seen and evaluated on the unit and was agreeable with speaking to conventional underwriter in office. He states for the past 1-2 weeks there has been some body in his neighborhood intentionally messing with him. He states his ex girlfriend has a new partner to which he recently filed a complaint with CPS and he has a sense that this could be related. He states that someone has been banging on the windows, shining light from the roof and that his mom and stepdad are not aware of these incidents due to their hearing impairments. This is confounded by the fact that roughly 1.5 weeks ago he used meth, stated that he took 2-3 hits, denying any use in the past 2 days. This was strongly discouraged as patient's symptoms does appear to be directly related to his meth use. He states that his stepdad does have a gun however he does not have access to this and thus to defend himself he had to grab kitchen knives. He denies any past psych history. Patient denies any suicidal or homicidal ideations intent or plan. At this time patient denies any auditory or visual hallucinations. Patient denies any flight of ideas racing thoughts and increased in goal directed behavior. Patient admits to using meth once, taking 2-3 hits per patient, smoking 1/2 pack/day of cigarettes, he has been opiate free for 6 months." Hospital course: Upon admission to the unit patient was directable and agreeable to commence treatment and signed adult voluntary form.. Patient got along well with other patients on the unit and followed unit protocol. Patient was compliant with the medications and denied any side effects throughout hospital course. Patient was started on Lexapro 10 mg daily for anxiety, Vistaril 50 mg twice daily for anxiety. Patient's UDS was positive for meth and given patient's lack of history of psychosis with quick return to baseline paints more of a substance- induced picture and patient was strongly encouraged to no longer use meth to which he agreed. Patient spoke of his stressors and engaged in therapy both group and individual. Patient was also seen by medical team for history and physical exam. Throughout the course of the hospitalization patient gradually improved with regards to mood, anxiety, sleep and returned back to their baseline level of functioning. On the day of discharge patient denied any suicidal or homicidal ideations intent or plan denied any auditory or visual hallucinations. The patient denied any access to guns or weapons. Patient denied any paranoia and did not endorse any delusions. Patient does have a significant history of substance abuse and was counseled on abstaining from all substances including alcohol and marijuana. Patient was offered however declined inpatient substance-abuse rehab. Patient was also counseled on the medications and need for regular compliance and was encouraged to follow-up with their outpatient appointment for mental health and also for primary care. Patient to be discharged back home with family and will follow-up with [facility]. Patient was reminded to refrain from meth as this could be a contributory factor to his underlying paranoia Mental status exam: General Appearance: Patient appears to be stated age is alert, pleasant, and cooperative. Patient is in no acute distress and has fair hygiene and grooming Behavior: Patient is calmly seated without any agitated behavior. Speech: Patient's speech is fluent and nonpressured. Mood/Affect: Patient reports their mood is "good", affect is congruent and blunted Suicidality/Homicidality: Patient denies having any suicidal or homicidal ideation intent or plan. Perceptions: Patient denies any auditory or visual hallucinations. Though content/process: There is no evidence of any delusional thought content and thought process is linear and goal-directed. Memory and concentration: AOX3, grossly intact for the purposes of this session. Can spell "WORLD" backwards correctly. Judgment and insight: Fair Impression: Substance-induced psychotic disorder Anxiety, unspecified Nicotine dependence Opioid use disorder, in remission Plan: -Continue with discharge today as patient has improved and stabilized psychiatrically and is not currently an imminent threat to themself and/or others. Patient will remain at chronically elevated risk for harm to self and/or others due to their impulsivity and substance abuse. -Continue medications: Lexapro 10 mg daily for anxiety, Vistaril 50 mg twice daily for anxiety -Patient was counseled on the need for medication compliance and appropriate f ollow-up at mental health and also primary care for medical issues. Patient verbalized understanding and agreed. -Social work to help coordinate patients discharge today. also to ensure safe home environment that guns/weapons are either removed from the home or locked away. Social work also to arrange for patients follow up appointments with [facility] for psychiatric care along with follow up with primary care provider. -Patient counseled on abstaining from recreational drugs and marijuana and alcohol. Was informed/educated on the adverse effects on their physical and mental health. Patient verbally agreed and understood. Patient was offered substance abuse treatment however declined at this time. -Patient was instructed to return to the hospital or seek immediate medical care if their psychiatric or medical symptoms do worsen or reoccur. Abnormal Labs 10/19/24 10/20/24 10/20/24 11:00 11:20 11:20 WBC 12.47 H MPV 9.3 L Immature Gran # 0.05 H Neutrophils # 8.79 H Eosinophils # 0.51 H Sodium 136 L Carbon Dioxide 34 H Total Protein 5.3 L Albumin 3.3 L TSH 0.410 L Ur Amphetamines Screen Detected H U Methamphetamines Scrn Detected H U Benzodiazepines Scrn Detected H U Marijuana (THC) Screen Detected H Allergies Allergy/AdvReac Type Severity Reaction Status Date / Time Penicillins Allergy Unknown Verified 10/19/24 10:53 Childhood Vital Signs Temp 97.9 F 10/20/24 21:25 Pulse 79 10/21/24 08:32 Resp 16 10/20/24 21:25 BP 129/81 10/21/24 08:32 Pulse Ox 95 10/20/24 21:25 FiO2 Patient Condition at Discharge: Stable Plan - Discharge Summary Discharge Rx Participant: No New Discharge Prescriptions: New hydrOXYzine HCL [Atarax] 50 mg PO BID tab Nicotine 14Mg/24Hr Patch [Habitrol] 1 patch TRANSDERM DAILY #0 patch Escitalopram [Lexapro] 10 mg PO DAILY 30 Days #30 tab Buprenorphine-Nalox 8-2 mg Tab [Suboxone 8-2 mg Tab] 1 each SL TID tab Continue Losartan Potassium 100 mg PO DAILY Atorvastatin [Lipitor] 40 mg PO DAILY ALPRAZolam [Xanax] 1 mg PO BID PRN PRN Reason: Anxiety amLODIPine [Norvasc] 5 mg PO DAILY Omeprazole 40 mg PO DAILY Buprenorphine HCl/Naloxone HCl [Suboxone 8 mg-2 mg Sl Film] 1 film SL TID Discontinued Ibuprofen [Motrin Ib] 800 mg PO Q8H PRN PRN Reason: Pain hydrOXYzine HCL [Atarax] 50 mg PO BID PRN PRN Reason: Anxiety Discharge Medication List ALPRAZolam [Xanax] 1 mg PO BID PRN 10/19/24 [History] Atorvastatin [Lipitor] 40 mg PO DAILY 10/19/24 [History] Buprenorphine HCl/Naloxone HCl [Suboxone 8 mg-2 mg Sl Film] 1 film SL TID 10/19/24 [History] Losartan Potassium 100 mg PO DAILY 10/19/24 [History] Omeprazole 40 mg PO DAILY 10/19/24 [History] amLODIPine [Norvasc] 5 mg PO DAILY 10/19/24 [History] Buprenorphine-Nalox 8-2 mg Tab [Suboxone 8-2 mg Tab] 1 each SL TID tab 10/21/24 [Rx] Escitalopram [Lexapro] 10 mg PO DAILY 30 Days #30 tab 10/21/24 [Rx] Nicotine 14Mg/24Hr Patch [Habitrol] 1 patch TRANSDERM DAILY #0 patch 10/21/24 [Rx] hydrOXYzine HCL [Atarax] 50 mg PO BID tab 10/21/24 [Rx] Follow up Appointment(s)/Referral(s): Carlos Koch MD [Primary Care Provider] - 1-2 days [facility] [NON-STAFF] - 10/24/24 3:15 pm (Appointment is with Shaila. ) Patient Instructions/Handouts: Mood Disorders (DC), Generalized Anxiety Disorder (GEN) Activity/Diet/Wound Care/Special Instructions: [facility] Discharge Info Avoid the use of street drugs and alcohol. Take all medications as prescribed. When you are in need of refills on your medications, please contact your outpatient medical provider and/or outpatient psychiatrist. Please go to your scheduled outpatient appointments for aftercare treatment. If symptoms return or become worse, call the crisis line at or and/or visit the nearest emergency room for assistance. [place] Suicide and Crisis Lifeline - call or text 638. Discharge Disposition: HOME SELF-CARE
== END 2024-10-21 12:45 | disposition home or self-care (01) | DRG 773 ==
LOC: EC 08:04 → 3MHU 13:54
PROVIDERS: ADMIT Psychiatry & Neurology Psychiatry; ATTEND Psychiatry & Neurology Psychiatry
DX: F19.959 Other psychoactive substance use, unspecified with psychoactive substance-induced psychotic disorder, unspecified (principal); F41.9 Anxiety disorder, unspecified; F11.11 Opioid abuse, in remission; F17.210 Nicotine dependence, cigarettes, uncomplicated; F32.A Depression, unspecified; I10 Essential (primary) hypertension; R45.851 Suicidal ideations; Z79.899 Other long term (current) drug therapy; Z88.0 Allergy status to penicillin; Z71.51 Drug abuse counseling and surveillance of drug abuser
CPT/HCPCS: 80053; 80306; 82075; 83036; 84443; 85025; 87635; 99285

== ENCOUNTER 2024-11-07 16:30 | Emergency (ER) | payer OTHER ==
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
[2024-11-07 19:00] LABS: Amphetamine Screen,Urine Detected (NotDetected); Barbiturate Screen,Urine Not Detected (NotDetected); Benzodiazepines Screen,Urine Detected (NotDetected); Cocaine Screen,Urine Not Detected (NotDetected); Methadone Screen, Urine Not Detected (NotDetected); Opiate Screen,Urine Not Detected (NotDetected); Oxycodone Screen, Urine Not Detected (NotDetected); Phencyclidine Screen,Urine Not Detected (NotDetected); Tricyclic Antidepressant,Urine Not Detected (NotDetected); Urn Cannabinoid Scrn Detected (NotDetected)
[2024-11-07 21:04] VITALS: BP 120/71; PULSE 94; RESP 17; TEMP 98.4
== END 2024-11-07 21:06 | disposition home or self-care (01) ==
LOC: EC 16:30
DX: F43.20 Adjustment disorder, unspecified (principal); F17.200 Nicotine dependence, unspecified, uncomplicated; Z88.0 Allergy status to penicillin
CPT/HCPCS: 80306; 82075; 99284